=== PATIENT | male | born 1965 | race Caucasian/White ===

== ENCOUNTER → 2016-08-08 12:39 | Outpatient (CLI) | payer BC ==
[2012-12-08 08:36] VITALS: BMI 35.3
[~2016-08-08 12:39] MED LIST: ADVAIR 250/501 DISK INH; AMBIEN10 MG PO; HYDROCHLOROTHIA25 MG PO; KLOR-CON 1010 MEQ PO; NORCO 10/325 TA1 TA1 PO; PRINIVIL10 MG PO; PROVENTIL HFA6.7 GM INH; ZOLOFT50 MG PO
== END | disposition home or self-care (01) ==
LOC: D.CT 12:39
DX: R91.8 Other nonspecific abnormal finding of lung field (principal)